=== PATIENT | male | born 1995 | race Caucasian/White ===

== ENCOUNTER 2017-04-24 03:09 | Emergency (ER) | payer MEDICAID ==
[~2017-04-24] VITALS: Ht 182.9 cm; Wt 84.1 kg
[2017-04-24 03:42] LABS: BASOPHILS % (AUTO) 0.5 % (0.0-2.0); EOSINOPHILS % (AUTO) 0.3 % (1.0-6.0); HEMATOCRIT 39.9 % (41-53); LYMPHOCYTES # (AUTO) 3.6 K/uL (1.0-4.8); LYMPHOCYTES % (AUTO) 27.4 % (22.0-44.0); MEAN CORPUSCULAR HEMOGLOBIN 31.4 pg (26.0-34.0); MEAN CORPUSCULAR HGB CONC 35.1 G/dL (31.0-37.0); MEAN CORPUSCULAR VOLUME 89 fL (80-100); MONOCYTES % (AUTO) 7.2 % (2.0-9.0); NEUTROPHILS # (AUTO) 8.5 K/uL (1.8-7.7); NEUTROPHILS % (AUTO) 64.6 % (40.0-70.0); PLATELET COUNT (AUTO) 340 K/uL (150-450); RED BLOOD CELL COUNT(AUTO) 4.46 MIL/uL (4.50-5.90); RED CELL DISTRIBUTION WIDTH 12.6 % (11.5-14.5); WHITE BLOOD COUNT (AUTO) 13.2 K/uL (4.5-11.0)
[2017-04-24 03:53] LABS: ANION GAP 12 mmol/L (8-16); CALCIUM, TOTAL 9.2 mg/dL (8.8-10.5); CARBON DIOXIDE 27 mmol/L (22-29); CHLORIDE 104 mmol/L (98-107); GLOMERULAR FILTR. RATE CALC > 60 mL/min (>60); POTASSIUM 3.7 mmol/L (3.5-5.1); SODIUM SERUM 143 mmol/L (136-145); UREA NITROGEN, BLOOD 14 mg/dL (7-18)
[2017-04-24 03:58] LABS: ALANINE AMINOTRANSFERASE 58 U/L (12-78); ALBUMIN 4.3 g/dL (3.4-5.0); ASPARTATE AMINOTRANSFERASE 35 U/L (15-37); BILIRUBIN,TOTAL 0.3 mg/dL (0.1-1.0); TOTAL PROTEIN, SERUM 8.2 g/dL (6.4-8.2)
[2017-04-24] MEDS ORDERED: LORazepam 2 MG/ML VIAL IM ONE (04:30)
[2017-04-24] MEDS ORDERED: DiphenhydrAMINE HCL 50 MG/ML VIAL IM ONE (04:30)
[2017-04-24] MEDS ORDERED: HALOPERIDOL LACTATE 5 MG/ML VIAL IM ONE (04:30)
[2017-04-24] MEDS ORDERED: OLANZapine 5 MG TABLET PO ONE (06:30)
[2017-04-24] MEDS ORDERED: ZOLPIDEM TARTRATE 10 MG TABLET PO PRN (09:45)
[2017-04-24 13:18] LABS: LITHIUM 0.47 mmol/L (0.60-1.20)
[2017-04-24] MEDS ORDERED: LORA0.5T83 PO (16:44)
[2017-04-24] MEDS ORDERED: MULT-1119 PO (16:44)
[2017-04-24] MEDS ORDERED: CLON0.2T PO (16:44)
[2017-04-24] MEDS ORDERED: CLON0.1T PO (16:44)
[2017-04-24] MEDS ORDERED: OMEG-61 PO (16:44)
[2017-04-24] MEDS ORDERED: OXCA600T3 PO (16:44)
[2017-04-24] MEDS ORDERED: DOCU250C91 PO (16:44)
[2017-04-24] MEDS ORDERED: SERT25TA PO (16:44)
[2017-04-24] MEDS ORDERED: OLAN15TA2 PO (16:44)
[2017-04-24] MEDS ORDERED: LITH300T4 PO ×2 (16:44)
[2017-04-24] MEDS ORDERED: CHOL400T27 PO (16:44)
[2017-04-24] MEDS: LORazepam 2 MG TABLET PO PRN (16:58)
[2017-04-24] MEDS: HALOPERIDOL 5 MG TABLET PO PRN (16:59)
[2017-04-25] MEDS: LORazepam 2 MG TABLET PO PRN (07:39)
[2017-04-25] MEDS: HALOPERIDOL 5 MG TABLET PO PRN (07:39)
[2017-04-25 09:33] LABS: CHOL/HDL RATIO 4.3 (4.2-7.3)
[2017-04-25] MEDS ORDERED: ZOLPIDEM TARTRATE 10 MG TABLET PO PRN (11:45)
[2017-04-25] MEDS ORDERED: HALOPERIDOL 5 MG TABLET PO PRN (11:45)
[2017-04-25] MEDS ORDERED: LORazepam 2 MG TABLET PO PRN (11:45)
[2017-04-25] MEDS ORDERED: DiphenhydrAMINE HCL 50 MG/ML VIAL IM ONE (12:45)
[2017-04-25] MEDS ORDERED: LORazepam 2 MG/ML VIAL IM ONE (12:45)
[2017-04-25] MEDS ORDERED: HALOPERIDOL LACTATE 5 MG/ML VIAL IM ONE (12:45)
[2017-04-25] MEDS ORDERED: LITHIUM CARBONATE 600 MG CAPSULE PO ONE (15:15)
[2017-04-25 18:05] VITALS: BP 134/89
== END 2017-04-25 19:42 | disposition home or self-care (01) ==
LOC: EMS 03:14 → EEVIPCON 03:14 → EMS 04-25 19:42
DX: L85.3 Xerosis cutis (principal); F20.0 Paranoid schizophrenia; F84.0 Autistic disorder; F43.10 Post-traumatic stress disorder, unspecified; F90.9 Attention-deficit hyperactivity disorder, unspecified type
CPT/HCPCS: 36415; 80053; 80061; 80178; 80307; 85025; 96372; 99285; G0480; J1200 ×2; J1630 ×2; J2060 ×2

== ENCOUNTER 2019-04-22 21:09 | Emergency (ER) | payer MEDICARE, OTHER ==
[~2019-04-22] VITALS: Ht 185.4 cm; Wt 122.3 kg
[~2019-04-22 21:09] MED LIST: CHOL400T27 PO; CLON0.1T PO; CLON0.2T PO; DOCU250C91 PO; LITH300T4 PO; LORA0.5T83 PO; MULT-1119 PO; OLAN15TA2 PO; OMEG-61 PO; OXCA600T3 PO; SERT25TA PO
[2019-04-22 22:03] LABS: BASOPHILS % (AUTO) 0.5 % (0.0-2.0); EOSINOPHILS % (AUTO) 1.4 % (1.0-6.0); HEMATOCRIT 38.2 % (41-53); HEMOGLOBIN 12.7 g/dL (13.5-17.5); LYMPHOCYTES # (AUTO) 4.6 K/uL (1.0-4.8); LYMPHOCYTES % (AUTO) 33.1 % (22.0-44.0); MEAN CORPUSCULAR HEMOGLOBIN 30.9 pg (26.0-34.0); MEAN CORPUSCULAR HGB CONC 33.3 G/dL (31.0-37.0); MEAN CORPUSCULAR VOLUME 93 fL (80-100); MONOCYTES % (AUTO) 7.3 % (2.0-9.0); NEUTROPHILS % (AUTO) 57.7 % (40.0-70.0); PLATELET COUNT (AUTO) 284 K/uL (150-450); RED BLOOD CELL COUNT(AUTO) 4.11 MIL/uL (4.50-5.90); RED CELL DISTRIBUTION WIDTH 12.3 % (11.5-14.5)
[2019-04-22 22:16] LABS: ANION GAP 10 mmol/L (8-16); CALCIUM, TOTAL 9.3 mg/dL (8.8-10.5); CARBON DIOXIDE 26 mmol/L (22-29); CHLORIDE 104 mmol/L (98-107); CREATININE 1.06 mg/dL (0.60-1.30); GLOMERULAR FILTR. RATE CALC > 60 mL/min (>60); GLUCOSE,RANDOM 138 mg/dL (70-110); POTASSIUM 3.8 mmol/L (3.5-5.1); SODIUM SERUM 140 mmol/L (136-145); UREA NITROGEN, BLOOD 16 mg/dL (7-18)
[2019-04-22 22:21] LABS: ALANINE AMINOTRANSFERASE 37 U/L (12-78); ALBUMIN 3.6 g/dL (3.4-5.0); ALKALINE PHOSPHATASE 64 U/L (46-116); ASPARTATE AMINOTRANSFERASE 20 U/L (15-37); BILIRUBIN,TOTAL 0.2 mg/dL (0.1-1.0); TOTAL PROTEIN, SERUM 7.5 g/dL (6.4-8.2)
[2019-04-23] MEDS ORDERED: ATOR20TA86 PO (00:26)
[2019-04-23] MEDS ORDERED: ROPI1TAB11 PO (00:26)
[2019-04-23] MEDS ORDERED: BENZ1TAB10 PO (00:26)
[2019-04-23] MEDS ORDERED: LITH300C3 PO (00:26)
[2019-04-23] MEDS ORDERED: ADAP45GE TP (00:26)
[2019-04-23] MEDS ORDERED: LEVO125 PO (00:26)
[2019-04-23] MEDS ORDERED: LORA1TAB3 PO (00:26)
[2019-04-23] MEDS ORDERED: PARO20TA24 PO (00:26)
[2019-04-23] MEDS ORDERED: VITAD400 PO (00:26)
[2019-04-23] MEDS ORDERED: DIVA-78 PO (00:26)
[2019-04-23] MEDS ORDERED: DIVA500T52 PO (00:26)
[2019-04-23 02:16] LABS: AMPHET/METH SCREEN,URINE NEGATIVE (NEGATIVE); BARBITURATE SCREEN, URINE NEGATIVE (NEGATIVE); BENZODIAZEPINES SCREEN,URINE NEGATIVE (NEGATIVE); CANNABINOID SCREEN,URINE NEGATIVE (NEGATIVE); COCAINE SCREEN,URINE NEGATIVE (NEGATIVE); METHADONE SCREEN, URINE NEGATIVE (NEGATIVE); OPIATE SCREEN,URINE NEGATIVE (NEGATIVE)
[2019-04-23 02:18] LABS: PHENCYCLIDINE SCREEN,URINE NEGATIVE (NEGATIVE)
[2019-04-23 03:23] VITALS: BP 122/74
== END 2019-04-23 03:30 | disposition home or self-care (01) ==
LOC: EMS 21:13
DX: F91.8 Other conduct disorders (principal); F20.9 Schizophrenia, unspecified
CPT/HCPCS: 36415; 80053; 80307; 85025; 99285; G0480